=== PATIENT | male | born 1980 | race Caucasian/White ===

== ENCOUNTER 2024-05-09 00:47 | Outpatient (CLI) | payer BC, SELFPAY ==
[2024-05-09 12:37] LABS: Hemoglobin A1C 5.5 % (<5.7)
[2024-05-09 12:49] LABS: Calculated LDL 55 mg/dL (<100); Cholesterol 156 mg/dL (<200); HDL Cholesterol 95 mg/dL (40-60); TSH (W/Ref FT4) 3.38 uIU/mL (0.36-3.74); Triglyceride 34 mg/dL (<150)
== END 2024-05-09 00:48 | disposition home or self-care (01) ==
LOC: LOS 00:48
PROVIDERS: PCP Nurse Practitioner Family; Visit Provider Nurse Practitioner Family
DX: Z13.1 Encounter for screening for diabetes mellitus (principal); Z13.220 Encounter for screening for lipoid disorders; Z13.29 Encounter for screening for other suspected endocrine disorder
CPT/HCPCS: 36415; 80061; 83036; 84443

== ENCOUNTER 2024-07-26 08:22 | Day surgery (SDC) | payer BC, SELFPAY ==
--- NOTE | 2024-07-25 12:44 | W.PM.DSUDISC ---
Date of service: 07/26/24 Time of Service: 11:29 Discharge Plan Disposition Patient Disposition: Home Condition: Good Discharge Details Reason For Visit: screening colonoscopy Attending Provider: Janes Hung Primary Care Provider: Darius Garrett Home Meds and New Rx's Prescriptions: Discontinued bisacodyl [Dulcolax (bisacodyl)] 5 mg tablet,delayed release (DR/EC) 5 mg PO ONCE Qty: 4 0RF Rx Instructions: Take per colonoscopy instructions provided by ordering providers office polyethylene glycol 3350 17 gram/dose powder 17 g PO ONCE Qty: 238 0RF Rx Instructions: Take per colonoscopy instructions provided by ordering providers office Discharge Instructions Instructions: Colon and rectal cancer, Diverticulosis Additional Instructions: Mata, we were able to complete your colonoscopy today without any difficulty. Your prep was fine and I could see everything just nicely. I did find and remove 1 polyp. None of the features of this are worrisome to the naked eye, but we will send it off for pathology testing as the nature of some polyps influences the timing of the next colonoscopy. Those results usually take about a week or 2, but once I have them the office will be in touch with recommendations for your next colonoscopy. Incidentally, he also a little bit of diverticulosis. These are little weak spots in the muscular part of the colon wall. They can get infected or inflamed. During those episodes, we caught diverticulitis. It is typically experienced as fairly sharp pain, usually on the left side or down across the bottom part of the abdomen. I have attached a little bit of information here about polyps as well as diverticulosis. I would encourage you to increase some of the fiber in your regular diet. If you need anything or have any questions, please do not hesitate to call. Otherwise, we will be in touch once the polyp results are available. 1. If tolerated, consume a soft, low fiber diet for 1-2 days. 2. Do not drive, drink alcohol, operate machinery, make critical decisions, or do activities that require coordination or balance for 24 hours. 3. Because air was put into your colon during the procedure, expelling air from your rectum (passing gas or farting) is normal. 4. You may not have a bowel movement for 1-3 days because of the colonoscopy prep. This is normal. 5. Go directly to the emergency room if you notice any of the following: Develop chills (warm to touch), or if you have a thermometer and your temperature is above 101 Difficulty breathing or difficultly swallowing Persistent vomiting Severe abdominal pain, other than gas cramps Severe chest pain Black, tarry stools Any bleeding ? exceeding one tablespoon 6. Call your physician if the site where your intravenous was started becomes red, swollen, painful, and warm to touch. 7. Your physician has reviewed your pre-procedure medications. Please continue to take those medications as previously ordered. You will be given specific information/education regarding any changes to your medications before leaving. Activity:: Activity as Tolerated Diet:: As Tolerated Discharge Orders Discharge Orders: Discharge Order (Routine); Ordered 07/25/24 Ordered By: Janes Hung DS: Diagnosis Discharge Diagnosis (1) Encounter for screening colonoscopy: Status: Acute Asessment and Plan: Follow-up on polypectomy results
--- NOTE | 2024-07-25 12:46 | COLE_ITS ---
Date of service: 07/26/24 Time of Service: 11:31 Colonoscopy Report Date of procedure: 07/26/24 Pre-op diagnosis general: screening colonscopy Post-op diagnosis procedure note: other (Diverticulosis, colon polyp) Procedure: colonoscopy with polypectomy Surgeon: Janes Hung Anesthesia Type: General:No Airway Estimated blood loss (mL): 5 Pathology: other (0.25 cm polyp at 95 cm) Complications: None Disposition: same day Indications: Mata is a 44 year old man who needs a screening colonscopy Prep: Miralax/Dulcolax Procedure Start Time: 10:48 Procedure End Time: 11:19 Retraction Time: 16 Findings: Sigmoid diverticulosis, 0.25 cm polyp at 95 cm Procedure Description: After the induction of anesthesia, and with the patient in left lateral decubitus position, I began by performing an external anorectal exam.? Perineum and skin were normal, as was the anal verge.? There was no evidence of external hemorrhoids.? Next, I performed a digital rectal exam.? I did not appreciate any abnormal findings.? Next, I advanced a colonoscope into the rectal vault.? I performed retroflexion.? This was normal.? Using insufflation, I then advanced the colonoscope beyond the rectal folds and into the sigmoid colon before advancing towards the cecum.? There was some sigmoid diverticulosis.? The scope was noted to be in the cecum by identification of the ileocecal valve and appendiceal orifice.? I then began withdrawing the colonoscope using repeated irrigation as necessary for full evaluation of the colonic mucosa. Around 95 cm from the anal verge I identified a 0.25 cm polyp. ?It appeared flat in character. ?I was able to remove this with a energize snare polypectomy. There was a tiny bit of adenoma left on the corners, and this was removed in piecemeal with cold forceps. ?I examined the site, and there was minimal bleeding. ?Once this was completed, I continued to withdraw the scope and examine the remainder of the colonic mucosa.?Once the scope was withdrawn to the level of the rectum, great care was taken to examine portions of the rectal folds.? Finally, the scope was withdrawn and the patient was brought to the same-day surgery recovery unit as the anesthetic wore off. ?The findings and instructions were shared with the patient prior to discharge. Lincoln Bowel Prep Lincoln Bowel Prep Right Colon: 2 Left Colon: 3 Transverse Colon: 3 Total Score: 8
[2024-07-26 09:12] VITALS: BP 123/64; PULSE 48; RESP 14; TEMP 36.2; O2SAT 99
[2024-07-26] MEDS: Lactated Ringers 1,000 ML 80 ML IV (09:29)
--- NOTE | 2024-07-26 10:05 | W.ANESPRE ---
General Info Date of Service Date Performed: 07/26/24 Height: 6 ft Weight: 79.8 kg Body Mass Index (BMI): 23.8 Surgical Procedure: Operation Date: 07/26/24 10:20 Proposed Procedure Side Surgeon p Radha Hung MD Meds Allergies and Home Medications Allergies Allergy/AdvReac Type Severity Reaction Status Date / Time No Known Allergies Allergy Verified 07/26/24 09:11 Current Visit Medications: Current Medications Generic Name Dose Route Start Last Admin Trade Name Freq PRN Reason Stop Dose Admin Hyoscyamine Sulfate 0.125 mg 07/25/24 12:48 Hyoscyamine 0.125 Mg Sl/Oral/Chew SL 08/24/24 12:47 DIRECTED PRN Ringer's Solution 1,000 mls @ 80 mls/hr 07/26/24 06:00 07/26/24 09:29 IV 07/26/24 23:59 80 mls/hr INFUSION SÁNCHEZ Administration IV Miscellaneous Supplies 1 each 07/26/24 06:00 Iv Access IV 07/26/24 23:59 DIRECTED SÁNCHEZ Ondansetron HCl 4 mg 07/25/24 12:48 Ondansetron 4 Mg/2 Ml Vial IVP 08/24/24 12:47 Q4H PRN PRN Nausea / Vomiting Sodium Chloride 0 ml 07/26/24 06:00 Normal Saline Flush 10 Ml Syr IV 07/26/24 23:59 PRN PRN Sodium Chloride 0 ml 07/26/24 06:00 Normal Saline 10 Ml Vial IJ 07/26/24 23:59 DIRECTED PRN Sterile Water 0 ml 07/26/24 06:00 Water,Injection,Sterile 10 Ml Vial IJ 07/26/24 23:59 DIRECTED PRN PFSH Active Problems Active Problems: Problem Status Onset Code Encounter for screening colonoscopy Acute Z12.11 Hemorrhoids Acute K64.9 Surgical History Surgical History H/O hemorrhoidectomy 2006 Tobacco Smoking/Tobacco Use Status: Current every day Tobacco Type: smokeless tobacco Smokeless tobacco user: chewing tobacco and snuff Passive smoking exposure: Yes Second hand exposure: Yes Alcohol Alcohol Intake: current Alcohol intake frequency: 0-2 drinks per day Alcohol type: beer Substance Use Substance use: Daily Substance use type: marijuana Vital Signs and Lab Results Vital Signs Most Recent Vital Signs in EMR: Most Recent Vital Signs Temp Pulse Resp BP Pulse Ox 36.2 C L 48 L 14 123/64 99 07/26/24 09:12 07/26/24 09:12 07/26/24 09:12 07/26/24 09:12 07/26/24 09:12 Lab Results Blood Type / Crossmatch: No Data to Display Complete Blood Count: No Data to Display Complete Metabolic Panel: No Data to Display Liver Function Panel: No Data to Display Coagulation Panel: No Data to Display Cardiac Panel: No Data to Display Arterial Blood Gas: No Data to Display Venous Blood Gas: No Data to Display Pancreas Panel: No Data to Display Thyroid Panel: No Data to Display Infectious Disease: No Data to Display Blood Cultures: No Data to Display Toxicology Panel: No Data to Display Anesthesia Assessment and Plan Anesthesia History Personal History: No History of Anesthesia Complications Family History: No Family History of Anesthesia Complications Exercise Tolerance Exercise Tolerance: Metabolic Equivalents>4 Pertinent Negatives Pertinent Negatives: No Symptoms of GERD Cardiac & Pulmonary Exam Cardiac Exam: Normal S1/S2 Heart Sounds Pulmonary Exam: Clear Bilateral Breath Sounds Implantable Cardiac Device Does patient have a Pacemaker or an ICD?: No Airway Exam Known Difficult Airway: No Mallampati Class: 2 Mouth Opening: Normal (> 3cm) Thyromental Distance: Greater than 3 cm Neck Range of Motion: Full ROM Neck Circumference: Normal Teeth Condition: Normal Dentition ASA Classification ASA Score: ASA 2 Emergency Case?: No NPO Status NPO Status: NPO Clears >2 hours, Solids >8 hours Anesthesia Plan Resuscitation Status: Full Code Anesthesia Technique: General Anesthesia Airway Planned: Natural Airway Monitors Used: Standard Monitors
[2024-07-26 10:06] VITALS: BMI 23.8
--- NOTE | 2024-07-26 11:06 | BOWEL_PTH ---
PATIENT: Greg Razo LOC: [facility] U#:[id number] AGE/SX: 44/M ROOM: RE07/26/[address]: Janes Hung MD : 1980 BED: DIS: 07/26/2024 SPEC #: [id number] RECD: 07/26/24 13:02 STATUS: PRIYADarrell RE #: [id number] [place]RA[place]: 07/26/24 11:[address]: Janes Hung DEPT: Surgical Specimen RECD BY: Cely Garcia ENTERED: 07/26/24 13:03 SP TYPE: Bowel OTHR DR: Darius Garrett, FELIX Tissues: 1 - BIOPSY BOWEL Procedures: GROSS AND MICRO LEVEL 4 Comments: [id number]
[2024-07-26 11:24] VITALS: BP 111/64; PULSE 46; RESP 15; TEMP 36.6; O2SAT 99
[2024-07-26 11:41] VITALS: BP 111/64; PULSE 46; RESP 15; TEMP 36.6; O2SAT 99
[2024-07-26 11:42] VITALS: BP 115/65; PULSE 57; RESP 16; TEMP 36.4; O2SAT 98
--- NOTE | 2024-07-26 11:56 | W.ANESPOSTOP ---
Postoperative Evaluation Date, Time and Location Date Performed: 07/26/24 Time Performed: 11:38 Patient Location: Day Surgery Unit Vital Signs Most Recent Imported Vital Signs: Most Recent Vital Signs Temp Pulse Resp BP Pulse Ox 36.4 C L 57 L 16 115/65 98 07/26/24 11:42 07/26/24 11:42 07/26/24 11:42 07/26/24 11:42 07/26/24 11:42 Reviewed prior VS Pain Score Most Recent Pain Score: Most Recent Pain Score Pain Level 0 07/26/24 11:41 Assessment Mental Status: Awake (Alert & Oriented to Patient Baseline) Airway and Respiratory Function: Patent airway with normal (patient baseline) respiratory exam Cardiovascular Function: Hemodynamically Stable Hydration Status: Adequately Hydrated Nausea & Vomiting: No Nausea or Vomiting Pain: Pt. Denies Any Pain Peripheral Nerve Block: Patient did not receive a nerve block
== END 2024-07-26 11:54 | disposition home or self-care (01) ==
LOC: SUR 08:22
PROVIDERS: PCP Nurse Practitioner Family; Visit Provider Surgery
PROC: 0DJD8ZZ Inspection of Lower Intestinal Tract, Via Natural or Artificial Opening Endoscopic (ICD-10-PCS; CPT 45378; principal; 2024-07-26 10:15)
DX: Z12.11 Encounter for screening for malignant neoplasm of colon (principal); D12.3 Benign neoplasm of transverse colon; K57.30 Diverticulosis of large intestine without perforation or abscess without bleeding
CPT/HCPCS: 45385; 45380; 88305; J2704

== ENCOUNTER 2025-05-14 03:16 | Outpatient (CLI) | payer BC, SELFPAY ==
[2025-05-14 12:25] LABS: HCT 43.7 % (40.0-50.0); HGB 14.2 g/dL (13.5-17.5); MCH 29.5 pg (27.0-33.0); MCHC 32.5 % (32.0-36.0); MCV 91 fL (80-95); MPV 9.5 fL (8.0-11.0); Platelet Count 218 10^3/uL (130-400); RBC 4.81 10^6/uL (4.36-5.78); RDW 12.6 % (11.8-14.1); RDW-SD 41.7 fL; WBC 4.69 10^3/uL (4.4-10.8)
[2025-05-14 12:42] LABS: Iron 179 ug/dL (65-175); Total Iron Binding Capacity 266 ug/dL (250-450)
[2025-05-14 12:52] LABS: Hemoglobin A1C 5.5 % (<5.7)
[2025-05-14 13:13] LABS: Calculated LDL 64 mg/dL (<100); Cholesterol 160 mg/dL (<200); Ferritin 135 ng/mL (26-388); HDL Cholesterol 84 mg/dL (>or=40); Triglyceride 64 mg/dL (<150)
[2025-05-15 09:12] LABS: Transferrin 209 mg/dL (201-352)
== END 2025-05-14 03:17 | disposition home or self-care (01) ==
LOC: LOS 03:17
PROVIDERS: PCP Nurse Practitioner Family; Visit Provider Nurse Practitioner Family
DX: D50.9 Iron deficiency anemia, unspecified (principal); Z13.220 Encounter for screening for lipoid disorders; E83.119 Hemochromatosis, unspecified; Z13.1 Encounter for screening for diabetes mellitus
CPT/HCPCS: 36415; 80061; 85027; 82728; 83036; 83540; 83550; 84466